=== PATIENT | male | born 1985 | race African-American/Black ===

== ENCOUNTER 2024-10-11 14:04 | Inpatient (IN) | payer OTHER ==
[2024-10-11 14:28] VITALS: BMI 24.3
[2024-10-11] MEDS ORDERED: POLYETHYLENE GLYCOL (HEALTHYLAX) 3350 17 GM PACKET PO PRN (14:46)
[2024-10-11] MEDS ORDERED: LOPERAMIDE HCL 2 MG CAPSULE PO PRN (14:46)
[2024-10-11] MEDS ORDERED: guaiFENesin 600 MG TABLET.ER (FP) PO PRN (14:46)
[2024-10-11] MEDS ORDERED: BENZONATATE 200 MG CAPSULE PO PRN (14:46)
[2024-10-11] MEDS ORDERED: ACETAMINOPHEN 325 MG TABLET (FP) PO PRN (14:46)
[2024-10-11] MEDS ORDERED: NALOXONE (NARCAN) HCL 4 MG/0.1 ML SPRAY NS PRN (14:46)
[2024-10-11] MEDS ORDERED: MAGNESIUM HYDROX 2400MG/30ML ORAL SUSPENSION 30 ML CUP PO PRN (14:46)
[2024-10-11] MEDS ORDERED: IBUPROFEN 600 MG TABLET (FP) PO PRN (14:46)
[2024-10-11] MEDS ORDERED: P-EPHED 60MG/TRIPROLIDI 2.5MG TABLET PO PRN (14:46)
[2024-10-11] MEDS ORDERED: BENZOCAINE/MENTHOL (CHLORASEPTIC ) LOZENGE MM PRN (14:46)
[2024-10-11] MEDS ORDERED: IBUPROFEN 400 MG TABLET (FP) PO PRN (14:46)
[2024-10-11] MEDS ORDERED: MAG HYDROX/AL HYDROX/SIMETH 30 ML UNIT-DOSE CUP PO PRN (14:46)
[2024-10-11 20:11] LABS: PH,URINE 5.5 (5.0-8.0); URINE APPEARANCE CLEAR; URINE BILIRUBIN NEGATIVE (NEGATIVE); URINE COLOR YELLOW; URINE GLUCOSE (UA) NEGATIVE (NEGATIVE); URINE KETONE TRACE (NEGATIVE); URINE LEUK ESTERASE NEGATIVE (NEGATIVE); URINE NITRITE NEGATIVE (NEGATIVE); URINE PROTEIN NEGATIVE (NEGATIVE); URINE UROBILINOGEN 0.2 mg/dL (0.2-1.0)
[2024-10-11] MEDS: MELATONIN 5 MG TABLETS PO SCH (22:21)
[2024-10-11] MEDS: THIAMINE 100 MG TABLET PO SCH (22:21)
[2024-10-12] MEDS: PRENATAL VITAMINS W/ FOLIC ACID TABLET (FP) PO SCH (09:59)
[2024-10-12 10:27] LABS: HEMATOCRIT 46.6 % (40.1-51.0); HEMOGLOBIN 15.1 g/dL (13.7-17.5); MCHC 32.4 g/dl (32.3-36.5); MEAN CELL VOLUME 96.1 fl (79.0-92.2); MEAN PLT VOLUME 10.5 fl (9.4-12.4); PLATELET COUNT 263 x10^3/uL (163-337); RDW 12.3 % (12.0-15.6)
[2024-10-12 10:29] LABS: ALBUMIN 4.4 g/dl (3.4-5.0); BLOOD UREA NITROGEN 12.7 mg/dL (7-18)
[2024-10-12 10:30] LABS: CALCIUM 9.9 mg/dL (8.5-10.1)
[2024-10-12 10:32] LABS: CREATININE 1.2 mg/dL (0.55-1.3)
[2024-10-12 10:33] LABS: BILIRUBIN,TOTAL 0.6 mg/dL (0.2-1); TOT PROT 7.9 g/dl (6.4-8.2)
[2024-10-12 11:12] LABS: SYPHILIS W/ RPR CONF NON-REACTIVE (NONREACTIVE)
[2024-10-12 11:41] LABS: HCV DIAGNOSTIC IN-HOUSE W/RFLX NON-REACTIVE (NONREACTIVE)
[2024-10-12] MEDS: ARIPiprazole 10 MG TABLET PO SCH (22:55)
[2024-10-15] MEDS: TUBERCULIN PPD 5 TU/0.1ML VIAL ID ONE (08:54)
[2024-10-17] MEDS: BENZOCAINE 20 % GEL TUBE MM PRN (10:13)
[2024-10-21 06:43] VITALS: BP 117/82; PULSE 82; RESP 17; TEMP 97.7
[2024-10-21] MEDS: clonazePAM 1 MG ODT TABLETS SL ONE (10:04)
== END 2024-10-21 10:04 | disposition home or self-care (01) | DRG 895 ==
LOC: YASAS 14:04 → Y3NR 17:18 → Y3E 10-14 09:27
PROVIDERS: ADMIT Allergy & Immunology; ATTEND Psychiatry & Neurology Pain Medicine
PROC: HZ42ZZZ Group Counseling for Substance Abuse Treatment, Cognitive-Behavioral (ICD-10-PCS; principal; 2024-10-11)
DX: F10.20 Alcohol dependence, uncomplicated (principal); F16.20 Hallucinogen dependence, uncomplicated; F14.20 Cocaine dependence, uncomplicated; F12.20 Cannabis dependence, uncomplicated; F17.210 Nicotine dependence, cigarettes, uncomplicated; F20.9 Schizophrenia, unspecified; F31.9 Bipolar disorder, unspecified; J45.909 Unspecified asthma, uncomplicated
CPT/HCPCS: 36415; 80053; 80305; 80307; 81003; 85027; 86780; 86803; 87811; 93005; 93010